=== PATIENT | female | born 1970 | race Caucasian/White ===

== ENCOUNTER 2016-08-21 18:42 | Emergency (ER) | payer MEDICAID ==
[~2016-08-21 18:42] MED LIST: ANT12.5 PO; COL100 PO; FER300 PO; HUMULIN R100 U/1 M1 SC; LEVEMIR100 U/M1 SQ; LIPI10 PO; METFORMIN HCL1000 MG PO; METOPROLOL TART25 M1 PO; NORCO1 TA2 PO; PRI20 PO; ZES20 PO
[2016-08-21 21:03] VITALS: BP 147/74
== END 2016-08-21 21:17 | disposition home or self-care (01) ==
LOC: ED 18:42
DX: S16.1XXA Strain of muscle, fascia and tendon at neck level, initial encounter (principal); R51 Headache; I10 Essential (primary) hypertension; E11.9 Type 2 diabetes mellitus without complications; V49.9XXA Car occupant (driver) (passenger) injured in unspecified traffic accident, initial encounter; Y93.89 Activity, other specified; Y99.8 Other external cause status; Y92.89 Other specified places as the place of occurrence of the external cause

== ENCOUNTER 2017-05-10 20:47 | Inpatient (IN) | payer MEDICAID ==
[~2017-05-10] VITALS: Ht 167.6 cm; Wt 83.0 kg
[2017-05-10 21:34] LABS: BASOPHIL % 0.5 % (0-2); PLATELET COUNT 276 x10^3mcL (130-400)
[2017-05-10 21:35] LABS: RED CELL DISTRIBUTION WIDTH 15.7 % (11.5-14.5)
[2017-05-10 21:39] LABS: CALCIUM 8.3 mg/dL (8.5-10.1); CARBON DIOXIDE 27.5 mmol/L (21-32); CHLORIDE SERUM 102 mmol/L (98-107); GFR1 > 60 mL/min; GLUCOSE SERUM 139 mg/dL (74-106); POTASSIUM SERUM 3.8 mmol/L (3.5-5.1); SODIUM SERUM 139 mmol/L (136-145)
[2017-05-10 21:43] LABS: ALBUMIN 3.7 g/dL (3.4-5.0); ALKALINE PHOSPHATASE 69 U/L (46-116); ALT/SGPT 28 U/L (14-59); AST/SGOT 14 U/L (15-37); BILIRUBIN TOTAL 0.18 mg/dL (0.20-1.00); TOTAL PROTEIN, SERUM 7.1 g/dL (6.4-8.2)
[2017-05-10 22:06] LABS: T4(THYROXINE) 4.8 ug/dL (4.7-13.3)
[2017-05-10 23:05] LABS: CHOLESTEROL 200 mg/dL (<200); CHOLESTEROL/HDL RATIO 5.1; HDL CHOLESTEROL 39 mg/dL (40-60); MAGNESIUM 1.9 mg/dL (1.8-2.4); PHOSPHOROUS 3.5 mg/dL (2.5-4.9)
[2017-05-10 23:06] LABS: TRIGLYCERIDES 457 mg/dL (<150)
[2017-05-10 23:38] VITALS: BP 147/71
[2017-05-11 05:44] VITALS: BP 111/54
[2017-05-11 06:25] LABS: BASOPHIL % 0.5 % (0-2); PLATELET COUNT 248 x10^3mcL (130-400)
[2017-05-11 06:42] LABS: RED CELL DISTRIBUTION WIDTH 15.9 % (11.5-14.5)
[2017-05-11 06:43] LABS: CALCIUM 7.6 mg/dL (8.5-10.1); CARBON DIOXIDE 29.3 mmol/L (21-32); CHLORIDE SERUM 105 mmol/L (98-107); CREATININE SERUM 0.8 mg/dL (0.6-1.0); GFR1 > 60 mL/min; GLUCOSE SERUM 136 mg/dL (74-106); SODIUM SERUM 140 mmol/L (136-145); rbc morphology (normal/abnorm) ABNORMAL (NORMAL)
[2017-05-11 08:32] VITALS: BP 112/53
[2017-05-11 10:01] LABS: UA SPECIFIC GRAVITY 1.015 (1.005-1.035); microscopic required? YES; urine erythrocyte 2+ (NEGATIVE)
[2017-05-11 10:12] LABS: AMPHETAMINE QUAL UR NONE DETECTED (NEG <=1000)
[2017-05-11 13:04] VITALS: BP 110/51
[2017-05-11 18:01] VITALS: BP 104/40
[2017-05-11 21:24] VITALS: BP 112/53
[2017-05-12 06:30] VITALS: BP 108/50
[2017-05-12 07:35] LABS: BASOPHIL % 0.7 % (0-2); PLATELET COUNT 258 x10^3mcL (130-400)
[2017-05-12 07:46] LABS: RED CELL DISTRIBUTION WIDTH 16.1 % (11.5-14.5)
[2017-05-12 07:47] LABS: CALCIUM 8.3 mg/dL (8.5-10.1); CARBON DIOXIDE 31.2 mmol/L (21-32); CHLORIDE SERUM 103 mmol/L (98-107); CREATININE SERUM 0.8 mg/dL (0.6-1.0); GFR1 > 60 mL/min; GLUCOSE SERUM 140 mg/dL (74-106); POTASSIUM SERUM 4.2 mmol/L (3.5-5.1); SODIUM SERUM 139 mmol/L (136-145)
[2017-05-12 08:33] VITALS: BP 110/47
[2017-05-12 12:40] VITALS: BP 124/52
[2017-05-12 16:55] VITALS: BP 121/45
[2017-05-12 21:09] VITALS: BP 114/44
[2017-05-13 05:09] VITALS: BP 108/48
[2017-05-13 06:16] LABS: BASOPHIL % 0.6 % (0-2); PLATELET COUNT 274 x10^3mcL (130-400)
[2017-05-13 06:29] LABS: CALCIUM 8.6 mg/dL (8.5-10.1); CARBON DIOXIDE 32.2 mmol/L (21-32); CHLORIDE SERUM 101 mmol/L (98-107); CREATININE SERUM 0.8 mg/dL (0.6-1.0); GFR1 > 60 mL/min; GLUCOSE SERUM 121 mg/dL (74-106); POTASSIUM SERUM 4.2 mmol/L (3.5-5.1); SODIUM SERUM 140 mmol/L (136-145)
[2017-05-13 06:38] LABS: RED CELL DISTRIBUTION WIDTH 16.4 % (11.5-14.5)
[2017-05-13 10:57] VITALS: BP 108/48
[2017-05-13] MEDS ORDERED: ZES20 PO (13:22)
[2017-05-13 13:31] VITALS: BP 129/51
[2017-05-13] MEDS ORDERED: LEVOTHYROXIN0.075 M2 PO (13:59)
[2017-05-13] MEDS ORDERED: VITC PO (14:01)
[2017-05-13] MEDS ORDERED: FER300 PO (14:01)
== END 2017-05-13 15:22 | disposition home or self-care (01) | DRG 48 ==
LOC: ED 20:47 → DU 22:20
PROVIDERS: Emergency Medicine; Family Medicine
DX: G90.8 Other disorders of autonomic nervous system (principal); E11.65 Type 2 diabetes mellitus with hyperglycemia; I10 Essential (primary) hypertension; E03.9 Hypothyroidism, unspecified; R00.1 Bradycardia, unspecified; H81.10 Benign paroxysmal vertigo, unspecified ear; E83.51 Hypocalcemia; K21.9 Gastro-esophageal reflux disease without esophagitis; D64.9 Anemia, unspecified; E78.1 Pure hyperglyceridemia; Z85.850 Personal history of malignant neoplasm of thyroid; Z90.89 Acquired absence of other organs; Z83.3 Family history of diabetes mellitus; Z82.62 Family history of osteoporosis; Z90.49 Acquired absence of other specified parts of digestive tract; Z98.42 Cataract extraction status, left eye; Z98.41 Cataract extraction status, right eye; Z98.51 Tubal ligation status
CPT/HCPCS: 82962; 83880; J1815; J1885; J2405; J2765; J7030; J8597; Q0092

== ENCOUNTER 2017-09-28 19:49 | Emergency (ER) | payer MEDICAID ==
[~2017-09-28] VITALS: Ht 167.6 cm; Wt 82.6 kg
[~2017-09-28 19:49] MED LIST changes: +LEVOTHYROXIN0.075 M2 PO; +VITC PO
[2017-09-28 20:07] VITALS: Ht 167.6 cm; Wt 82.6 kg
[2017-09-28 20:53] LABS: UA SPECIFIC GRAVITY >=1.030 (1.005-1.035); microscopic required? YES; urine erythrocyte NEGATIVE (NEGATIVE)
[2017-09-28 21:02] LABS: AMPHETAMINE QUAL UR NONE DETECTED (See below)
[2017-09-28 21:15] LABS: CALCIUM 8.4 mg/dL (8.5-10.1); CHLORIDE SERUM 102 mmol/L (98-107); CREATININE SERUM 0.7 mg/dL (0.6-1.0); GFR1 > 60 mL/min; GLUCOSE SERUM 178 mg/dL (74-106); SODIUM SERUM 139 mmol/L (136-145)
[2017-09-28 21:26] LABS: BASOPHIL % 0.5 % (0-2); PLATELET COUNT 258 x10^3mcL (130-400)
[2017-09-28 21:27] LABS: ALBUMIN 3.4 g/dL (3.4-5.0); ALKALINE PHOSPHATASE 84 U/L (46-116); ALT/SGPT 38 U/L (14-59); AST/SGOT 25 U/L (15-37); BILIRUBIN TOTAL 0.2 mg/dL (0.20-1.00); FREE T4 0.68 ng/dL (0.76-1.46); LIPASE 321 IU/L (73-393)
[2017-09-28 21:36] LABS: RED CELL DISTRIBUTION WIDTH 17.8 % (11.5-14.5)
[2017-09-28 23:57] VITALS: BP 145/75
== END 2017-09-28 23:57 | disposition home or self-care (01) ==
LOC: ED 19:49
PROVIDERS: Emergency Medicine
DX: E03.9 Hypothyroidism, unspecified (principal); E11.9 Type 2 diabetes mellitus without complications; I10 Essential (primary) hypertension; Z91.14 Patient's other noncompliance with medication regimen; Z86.73 Personal history of transient ischemic attack (TIA), and cerebral infarction without residual deficits; Z90.09 Acquired absence of other part of head and neck
CPT/HCPCS: 83880; 84439; J7030

== ENCOUNTER 2017-10-08 20:21 | Emergency (ER) | payer MEDICAID ==
[~2017-10-08] VITALS: Ht 167.6 cm; Wt 79.8 kg
[2017-10-08 21:28] VITALS: BP 132/63; Ht 167.6 cm; Wt 79.8 kg
== END 2017-10-09 00:42 | disposition left against medical advice (07) ==
LOC: ED 20:21
DX: Z53.21 Procedure and treatment not carried out due to patient leaving prior to being seen by health care provider (principal)

== ENCOUNTER 2017-10-12 18:52 | Inpatient (IN) | payer MEDICAID ==
[~2017-10-12] VITALS: Ht 172.7 cm; Wt 79.4 kg
[2017-10-12 19:12] VITALS: Ht 172.7 cm; Wt 79.4 kg
[2017-10-12 20:09] LABS: BASOPHIL % 0.4 % (0-2); PLATELET COUNT 335 x10^3mcL (130-400)
[2017-10-12 20:19] LABS: CALCIUM 8.8 mg/dL (8.5-10.1); CARBON DIOXIDE 31.9 mmol/L (21-32); CHLORIDE SERUM 97 mmol/L (98-107); GFR1 > 60 mL/min; GLUCOSE SERUM 128 mg/dL (74-106); POTASSIUM SERUM 3.9 mmol/L (3.5-5.1); SODIUM SERUM 135 mmol/L (136-145)
[2017-10-12 20:31] LABS: ALKALINE PHOSPHATASE 119 U/L (46-116); ALT/SGPT 32 U/L (14-59); AST/SGOT 20 U/L (15-37); BILIRUBIN TOTAL 0.36 mg/dL (0.20-1.00); FREE T4 1.42 ng/dL (0.76-1.46); LIPASE 303 IU/L (73-393)
[2017-10-12 20:33] LABS: ALBUMIN 3.3 g/dL (3.4-5.0); TOTAL PROTEIN, SERUM 8.3 g/dL (6.4-8.2)
[2017-10-12 20:58] LABS: UA SPECIFIC GRAVITY 1.015 (1.005-1.035); microscopic required? YES; urine erythrocyte NEGATIVE (NEGATIVE)
[2017-10-12] MEDS ORDERED: CALCIUM/VITAMIN1 TA2 PO (21:54)
[2017-10-12] MEDS ORDERED: ZOCOR10 MG PO (21:54)
[2017-10-12] MEDS ORDERED: PRINIVIL10 MG PO (21:55)
[2017-10-12] MEDS ORDERED: GLUCOPHAGE1000 MG PO (21:56)
[2017-10-12] MEDS ORDERED: SYNTHROID0.175 MG PO (21:57)
[2017-10-12] MEDS ORDERED: LANTUS100 U/ML SC (21:58)
[2017-10-12 23:12] VITALS: BP 99/38
[2017-10-13 02:51] LABS: MAGNESIUM 1.9 mg/dL (1.8-2.4); PHOSPHOROUS 3.6 mg/dL (2.5-4.9)
[2017-10-13 05:10] VITALS: BP 125/41
[2017-10-13 07:33] LABS: BASOPHIL % 0.2 % (0-2); PLATELET COUNT 275 x10^3mcL (130-400)
[2017-10-13 07:50] LABS: CALCIUM 7.9 mg/dL (8.5-10.1); CARBON DIOXIDE 28.4 mmol/L (21-32); CHLORIDE SERUM 102 mmol/L (98-107); CREATININE SERUM 0.7 mg/dL (0.6-1.0); GFR1 > 60 mL/min; GLUCOSE SERUM 106 mg/dL (74-106); PHOSPHOROUS 3.2 mg/dL (2.5-4.9); POTASSIUM SERUM 3.5 mmol/L (3.5-5.1); SODIUM SERUM 138 mmol/L (136-145)
[2017-10-13 09:03] LABS: rbc morphology (normal/abnorm) ABNORMAL (NORMAL)
[2017-10-13 09:24] VITALS: BP 129/55
[2017-10-13 12:44] VITALS: BP 151/59
[2017-10-13 16:20] VITALS: BP 112/43
[2017-10-13 22:33] VITALS: BP 121/35
[2017-10-14] VITALS (8 sets, daily range): BP systolic 103–158; BP diastolic 32–76
[2017-10-14 06:30] LABS: BASOPHIL % 0.4 % (0-2); PLATELET COUNT 300 x10^3mcL (130-400)
[2017-10-14 06:50] LABS: CALCIUM 8.2 mg/dL (8.5-10.1); CARBON DIOXIDE 31.3 mmol/L (21-32); CHLORIDE SERUM 103 mmol/L (98-107); CREATININE SERUM 0.7 mg/dL (0.6-1.0); GFR1 > 60 mL/min; GLUCOSE SERUM 116 mg/dL (74-106); MAGNESIUM 2.1 mg/dL (1.8-2.4); PHOSPHOROUS 3.6 mg/dL (2.5-4.9); POTASSIUM SERUM 4.1 mmol/L (3.5-5.1); SODIUM SERUM 139 mmol/L (136-145)
[2017-10-14 09:13] LABS: HELICOBACTER PYLORI IGG QNT 0.53 (0.00-0.79)
[2017-10-14 09:20] LABS: ovalocyte/elliptocyte 1+; rbc morphology (normal/abnorm) ABNORMAL (NORMAL); tear drop cell (dacryocyte) 1+
[2017-10-15 05:36] VITALS: BP 138/46
[2017-10-15 09:24] LABS: CALCIUM 8.6 mg/dL (8.5-10.1); CARBON DIOXIDE 28.6 mmol/L (21-32); CHLORIDE SERUM 98 mmol/L (98-107); CREATININE SERUM 0.7 mg/dL (0.6-1.0); GFR1 > 60 mL/min; GLUCOSE SERUM 214 mg/dL (74-106); MAGNESIUM 1.9 mg/dL (1.8-2.4); PHOSPHOROUS 3.4 mg/dL (2.5-4.9); POTASSIUM SERUM 3.9 mmol/L (3.5-5.1); SODIUM SERUM 130 mmol/L (136-145)
[2017-10-15 09:30] LABS: BASOPHIL % 0.2 % (0-2); PLATELET COUNT 316 x10^3mcL (130-400)
[2017-10-15 09:33] LABS: RED CELL DISTRIBUTION WIDTH 19.6 % (11.5-14.5)
[2017-10-15 09:34] LABS: rbc morphology (normal/abnorm) ABNORMAL (NORMAL)
[2017-10-15 09:53] VITALS: BP 110/45
[2017-10-15 13:57] VITALS: BP 118/50
[2017-10-15 17:15] VITALS: BP 103/50
[2017-10-15 21:06] VITALS: BP 125/42
[2017-10-16] VITALS (8 sets, daily range): BP systolic 114–143; BP diastolic 47–76
[2017-10-16 07:20] LABS: BASOPHIL % 0.5 % (0-2); PLATELET COUNT 331 x10^3mcL (130-400)
[2017-10-16 07:24] LABS: RED CELL DISTRIBUTION WIDTH 20.1 % (11.5-14.5)
[2017-10-16 07:54] LABS: CALCIUM 8.4 mg/dL (8.5-10.1); CHLORIDE SERUM 102 mmol/L (98-107); CREATININE SERUM 0.6 mg/dL (0.6-1.0); GFR1 > 60 mL/min; GLUCOSE SERUM 117 mg/dL (74-106); PHOSPHOROUS 4.1 mg/dL (2.5-4.9); POTASSIUM SERUM 3.9 mmol/L (3.5-5.1); SODIUM SERUM 137 mmol/L (136-145)
[2017-10-16 09:15] LABS: ovalocyte/elliptocyte 1+; rbc morphology (normal/abnorm) ABNORMAL (NORMAL); target cell (codocyte) 1+
[2017-10-17 05:17] VITALS: BP 118/67
[2017-10-17 06:18] LABS: BASOPHIL % 0.2 % (0-2); PLATELET COUNT 345 x10^3mcL (130-400)
[2017-10-17 06:36] LABS: CALCIUM 8.3 mg/dL (8.5-10.1); CARBON DIOXIDE 27.7 mmol/L (21-32); CHLORIDE SERUM 101 mmol/L (98-107); CREATININE SERUM 0.6 mg/dL (0.6-1.0); GFR1 > 60 mL/min; GLUCOSE SERUM 120 mg/dL (74-106); MAGNESIUM 2.1 mg/dL (1.8-2.4); PHOSPHOROUS 4.1 mg/dL (2.5-4.9); POTASSIUM SERUM 4.2 mmol/L (3.5-5.1); SODIUM SERUM 133 mmol/L (136-145)
[2017-10-17 06:41] LABS: RED CELL DISTRIBUTION WIDTH 19.7 % (11.5-14.5); rbc morphology (normal/abnorm) ABNORMAL (NORMAL)
[2017-10-17 09:01] VITALS: BP 136/61
[2017-10-17 12:15] VITALS: BP 136/61
[2017-10-17 12:23] VITALS: BP 120/50
[2017-10-17 16:45] VITALS: BP 134/60
[2017-10-17 20:19] VITALS: BP 116/48
[2017-10-18 05:45] VITALS: BP 127/53
[2017-10-18 06:07] LABS: BASOPHIL % 0.5 % (0-2); PLATELET COUNT 399 x10^3mcL (130-400)
[2017-10-18 06:33] LABS: CALCIUM 8.6 mg/dL (8.5-10.1); CARBON DIOXIDE 30.8 mmol/L (21-32); CHLORIDE SERUM 99 mmol/L (98-107); CREATININE SERUM 0.6 mg/dL (0.6-1.0); GFR1 > 60 mL/min; GLUCOSE SERUM 123 mg/dL (74-106); MAGNESIUM 2.2 mg/dL (1.8-2.4); PHOSPHOROUS 4.1 mg/dL (2.5-4.9); POTASSIUM SERUM 3.9 mmol/L (3.5-5.1); SODIUM SERUM 137 mmol/L (136-145)
[2017-10-18 06:43] LABS: RED CELL DISTRIBUTION WIDTH 19.5 % (11.5-14.5)
[2017-10-18 08:36] VITALS: BP 131/45
[2017-10-18 12:41] VITALS: BP 133/60
[2017-10-18 18:10] VITALS: BP 118/50
[2017-10-18 21:01] VITALS: BP 135/56
[2017-10-19 05:41] LABS: BASOPHIL % 0.4 % (0-2)
[2017-10-19 05:52] LABS: CALCIUM 8.4 mg/dL (8.5-10.1); CARBON DIOXIDE 27.6 mmol/L (21-32); CHLORIDE SERUM 105 mmol/L (98-107); CREATININE SERUM 0.5 mg/dL (0.6-1.0); GFR1 > 60 mL/min; GLUCOSE SERUM 104 mg/dL (74-106); POTASSIUM SERUM 4.6 mmol/L (3.5-5.1); SODIUM SERUM 140 mmol/L (136-145)
[2017-10-19 05:59] LABS: PLATELET COUNT 410 x10^3mcL (130-400); RED CELL DISTRIBUTION WIDTH 19.7 % (11.5-14.5)
[2017-10-19 08:35] VITALS: BP 113/46
[2017-10-19 13:30] VITALS: BP 121/55
[2017-10-19 18:21] VITALS: BP 121/50
[2017-10-19 18:25] VITALS: BP 157/91
[2017-10-19 20:39] VITALS: BP 127/47
[2017-10-20 05:10] VITALS: BP 140/44
[2017-10-20 09:24] VITALS: BP 121/53
[2017-10-20 13:37] VITALS: BP 116/46
[2017-10-20 15:56] VITALS: BP 116/46
[2017-10-20 17:51] VITALS: BP 117/45
[2017-10-20 20:30] VITALS: BP 125/42
[2017-10-21 04:55] VITALS: BP 118/48
[2017-10-21 07:03] LABS: BASOPHIL % 0.4 % (0-2)
[2017-10-21 07:05] LABS: PLATELET COUNT 484 x10^3mcL (130-400); RED CELL DISTRIBUTION WIDTH 20.2 % (11.5-14.5)
[2017-10-21 07:13] LABS: CALCIUM 8.8 mg/dL (8.5-10.1); CARBON DIOXIDE 30.2 mmol/L (21-32); CHLORIDE SERUM 101 mmol/L (98-107); CREATININE SERUM 0.6 mg/dL (0.6-1.0); GFR1 > 60 mL/min; GLUCOSE SERUM 108 mg/dL (74-106); MAGNESIUM 2.1 mg/dL (1.8-2.4); PHOSPHOROUS 4.6 mg/dL (2.5-4.9); POTASSIUM SERUM 4.3 mmol/L (3.5-5.1); SODIUM SERUM 138 mmol/L (136-145)
[2017-10-21 09:23] VITALS: BP 122/53
[2017-10-21 12:54] VITALS: BP 112/46
[2017-10-21 13:24] VITALS: BP 122/53
== END 2017-10-21 15:31 | disposition home or self-care (01) | DRG 139 ==
LOC: ED 18:52 → DU 21:17
PROVIDERS: Emergency Medicine; Family Medicine
DX: J18.9 Pneumonia, unspecified organism (principal); N17.0 Acute kidney failure with tubular necrosis; E11.65 Type 2 diabetes mellitus with hyperglycemia; E87.1 Hypo-osmolality and hyponatremia; E44.1 Mild protein-calorie malnutrition; R80.9 Proteinuria, unspecified; R91.8 Other nonspecific abnormal finding of lung field; K21.9 Gastro-esophageal reflux disease without esophagitis; R19.7 Diarrhea, unspecified; D50.9 Iron deficiency anemia, unspecified; I10 Essential (primary) hypertension; E78.00 Pure hypercholesterolemia, unspecified; Z68.34 Body mass index [BMI] 34.0-34.9, adult; Z79.4 Long term (current) use of insulin; Z79.84 Long term (current) use of oral hypoglycemic drugs; Z85.850 Personal history of malignant neoplasm of thyroid
CPT/HCPCS: 82962; 83880; 84439; 90715; 94150; J0696; J1670; J2270; J2543; J3010; J3370; J7030; J7620; Q0092; Q9967

== ENCOUNTER 2017-11-08 09:14 | Emergency (ER) | payer MEDICAID ==
[~2017-11-08] VITALS: Ht 167.6 cm; Wt 80.3 kg
[~2017-11-08 09:14] MED LIST changes: +CALCIUM/VITAMIN1 TA2 PO; +GLUCOPHAGE1000 MG PO; +LANTUS100 U/ML SC; +PRINIVIL10 MG PO; +SYNTHROID0.175 MG PO; +ZOCOR10 MG PO
[2017-11-08 09:24] VITALS: BP 131/43; Ht 167.6 cm; Wt 80.3 kg
== END 2017-11-08 11:22 | disposition home or self-care (01) ==
LOC: ED 09:14
DX: H10.213 Acute toxic conjunctivitis, bilateral (principal); Z86.73 Personal history of transient ischemic attack (TIA), and cerebral infarction without residual deficits; I10 Essential (primary) hypertension; E11.9 Type 2 diabetes mellitus without complications; E78.00 Pure hypercholesterolemia, unspecified
CPT/HCPCS: V2632

== ENCOUNTER 2018-09-01 19:22 | Inpatient (IN) | payer MEDICAID ==
[~2018-09-01] VITALS: Ht 172.7 cm; Wt 90.7 kg
[2018-09-01 19:34] VITALS: Ht 172.7 cm; Wt 90.7 kg
[2018-09-01 20:59] LABS: BASOPHIL % 0.4 % (0-2); PLATELET COUNT 222 x10^3mcL (130-400)
[2018-09-01 21:00] LABS: RED CELL DISTRIBUTION WIDTH 16.2 % (11.5-14.5)
[2018-09-01 21:02] LABS: CALCIUM 9.2 mg/dL (8.5-10.1); CARBON DIOXIDE 30.6 mmol/L (21-32); CHLORIDE SERUM 101 mmol/L (98-107); CREATININE SERUM 0.8 mg/dL (0.6-1.0); GFR1 > 60 mL/min; GLUCOSE SERUM 346 mg/dL (74-106); SODIUM SERUM 138 mmol/L (136-145)
[2018-09-01 21:13] LABS: ALBUMIN 3.9 g/dL (3.4-5.0); ALKALINE PHOSPHATASE 105 U/L (46-116); ALT/SGPT 55 U/L (14-59); AST/SGOT 25 U/L (15-37); BILIRUBIN TOTAL 0.2 mg/dL (0.20-1.00); TOTAL PROTEIN, SERUM 7.5 g/dL (6.4-8.2)
[2018-09-01] MEDS ORDERED: FERROUS SULFAT325 M2 PO (23:42)
[2018-09-01] MEDS ORDERED: GOOD SENSE OMEP20 MG PO (23:42)
[2018-09-01] MEDS ORDERED: HYDROCHLOROTH12.5 M2 PO (23:42)
[2018-09-02] VITALS (7 sets, daily range): BP systolic 101–140; BP diastolic 48–71
[2018-09-02 00:04] LABS: CHOLESTEROL/HDL RATIO 4.3; MAGNESIUM 2.2 mg/dL (1.8-2.4); PHOSPHOROUS 3.7 mg/dL (2.5-4.9)
[2018-09-02 00:11] LABS: T3 TOTAL 1.23 ng/mL
[2018-09-02 00:12] LABS: FREE T4 1.15 ng/dL (0.76-1.46); FREE THYROXINE INDEX 3.3 ug/dL (1.4-4.5)
[2018-09-02 06:30] LABS: BASOPHIL % 0.5 % (0-2); PLATELET COUNT 214 x10^3mcL (130-400)
[2018-09-02 06:56] LABS: microscopic required? NO
[2018-09-02 07:02] LABS: CALCIUM 8.5 mg/dL (8.5-10.1); CARBON DIOXIDE 31.7 mmol/L (21-32); CHLORIDE SERUM 104 mmol/L (98-107); CREATININE SERUM 0.6 mg/dL (0.6-1.0); GFR1 > 60 mL/min; GLUCOSE SERUM 167 mg/dL (74-106); MAGNESIUM 1.9 mg/dL (1.8-2.4); PHOSPHOROUS 4.1 mg/dL (2.5-4.9); POTASSIUM SERUM 3.9 mmol/L (3.5-5.1); SODIUM SERUM 142 mmol/L (136-145)
[2018-09-02 07:10] LABS: RED CELL DISTRIBUTION WIDTH 16.6 % (11.5-14.5)
[2018-09-02 07:45] LABS: AMPHETAMINE QUAL UR NONE DETECTED (See below)
[2018-09-02 08:57] LABS: urine erythrocyte NEGATIVE (NEGATIVE)
[2018-09-03 05:35] VITALS: BP 103/61
[2018-09-03 06:06] LABS: BASOPHIL % 0.5 % (0-2); PLATELET COUNT 200 x10^3mcL (130-400)
[2018-09-03 06:22] LABS: CALCIUM 8.8 mg/dL (8.5-10.1); CARBON DIOXIDE 28.4 mmol/L (21-32); CHLORIDE SERUM 104 mmol/L (98-107); CREATININE SERUM 0.6 mg/dL (0.6-1.0); GFR1 > 60 mL/min; GLUCOSE SERUM 147 mg/dL (74-106); MAGNESIUM 1.8 mg/dL (1.8-2.4); PHOSPHOROUS 4.9 mg/dL (2.5-4.9); SODIUM SERUM 141 mmol/L (136-145)
[2018-09-03 07:05] LABS: RED CELL DISTRIBUTION WIDTH 14.9 % (11.5-14.5)
[2018-09-03 07:57] VITALS: BP 143/41
[2018-09-03 12:45] VITALS: BP 123/44
[2018-09-03 14:37] VITALS: BP 123/44
== END 2018-09-03 15:19 | disposition home or self-care (01) | DRG 347 ==
LOC: ED 19:22 → DU 23:30
PROVIDERS: Emergency Medicine; ADMIT Internal Medicine
DX: M54.6 Pain in thoracic spine (principal); E11.65 Type 2 diabetes mellitus with hyperglycemia; I10 Essential (primary) hypertension; K21.9 Gastro-esophageal reflux disease without esophagitis; E78.5 Hyperlipidemia, unspecified; D50.9 Iron deficiency anemia, unspecified; Z68.32 Body mass index [BMI] 32.0-32.9, adult; Z85.850 Personal history of malignant neoplasm of thyroid; Z79.84 Long term (current) use of oral hypoglycemic drugs; Z86.73 Personal history of transient ischemic attack (TIA), and cerebral infarction without residual deficits
CPT/HCPCS: 82962; 83880; 84439; 85378; G0378; J1815; J2270; J3490; J7030; Q9967

== ENCOUNTER 2018-11-05 08:13 | Inpatient (IN) | payer MEDICAID ==
[~2018-11-05] VITALS: Ht 167.6 cm; Wt 80.9 kg
[~2018-11-05 08:13] MED LIST changes: +FERROUS SULFAT325 M2 PO; +GOOD SENSE OMEP20 MG PO; +HYDROCHLOROTH12.5 M2 PO
[2018-11-05 08:18] VITALS: Ht 167.6 cm; Wt 80.9 kg
[2018-11-05 09:12] LABS: BASOPHIL % 0.6 % (0-2); PLATELET COUNT 311 x10^3mcL (130-400); RED CELL DISTRIBUTION WIDTH 13.6 % (11.5-14.5)
[2018-11-05 09:34] LABS: CALCIUM 8.8 mg/dL (8.5-10.1); CARBON DIOXIDE 27.8 mmol/L (21-32); CHLORIDE SERUM 104 mmol/L (98-107); CREATININE SERUM 0.6 mg/dL (0.6-1.0); GFR1 > 60 mL/min; GLUCOSE SERUM 164 mg/dL (74-106); POTASSIUM SERUM 4.3 mmol/L (3.5-5.1); SODIUM SERUM 143 mmol/L (136-145)
[2018-11-05 09:39] LABS: ALBUMIN 3.8 g/dL (3.4-5.0); ALKALINE PHOSPHATASE 111 U/L (46-116); ALT/SGPT 33 U/L (14-59); AST/SGOT 34 U/L (15-37); BILIRUBIN TOTAL 0.4 mg/dL (0.20-1.00)
[2018-11-05] MEDS ORDERED: LEVOTHYROXINE0.2 M2 PO (10:26)
[2018-11-05] MEDS ORDERED: GABAPENTIN300 M4 PO (10:27)
[2018-11-05] MEDS ORDERED: COLACE100 MG PO ×2 (10:28→10:29)
[2018-11-05] MEDS ORDERED: DIFLUCAN200 MG PO (10:31)
[2018-11-05] MEDS ORDERED: LEVEMIR100 U/M1 (10:31)
[2018-11-05 14:37] VITALS: BP 110/45
[2018-11-05 16:39] LABS: microscopic required? YES; urine erythrocyte 3+ (NEGATIVE)
[2018-11-05 16:52] LABS: AMPHETAMINE QUAL UR POSITIVE (See below)
[2018-11-05 18:56] LABS: CHOLESTEROL/HDL RATIO 3.6
[2018-11-05 19:06] LABS: FREE T4 1.47 ng/dL (0.76-1.46)
[2018-11-05 19:08] LABS: T3 TOTAL 1.21 ng/mL
[2018-11-05 20:20] VITALS: BP 119/64; BP 122/72
[2018-11-06] VITALS (11 sets, daily range): BP systolic 102–117; BP diastolic 30–70
[2018-11-06 07:20] LABS: CALCIUM 7.8 mg/dL (8.5-10.1); CHLORIDE SERUM 107 mmol/L (98-107); CREATININE SERUM 0.7 mg/dL (0.6-1.0); GFR1 > 60 mL/min; GLUCOSE SERUM 146 mg/dL (74-106); SODIUM SERUM 144 mmol/L (136-145)
[2018-11-06 07:39] LABS: BASOPHIL % 0.7 % (0-2); PLATELET COUNT 238 x10^3mcL (130-400); RED CELL DISTRIBUTION WIDTH 13.7 % (11.5-14.5)
[2018-11-07 06:00] VITALS: BP 118/55
[2018-11-07 06:53] LABS: BASOPHIL % 0.6 % (0-2); PLATELET COUNT 221 x10^3mcL (130-400); RED CELL DISTRIBUTION WIDTH 13.5 % (11.5-14.5)
[2018-11-07 07:12] LABS: CALCIUM 7.6 mg/dL (8.5-10.1); CARBON DIOXIDE 25.7 mmol/L (21-32); CHLORIDE SERUM 108 mmol/L (98-107); CREATININE SERUM 0.6 mg/dL (0.6-1.0); GFR1 > 60 mL/min; GLUCOSE SERUM 144 mg/dL (74-106); POTASSIUM SERUM 3.7 mmol/L (3.5-5.1); SODIUM SERUM 144 mmol/L (136-145)
[2018-11-07 08:11] VITALS: BP 131/51
[2018-11-07 12:09] VITALS: BP 125/49
[2018-11-07 16:45] VITALS: BP 118/42
[2018-11-07 20:29] VITALS: BP 114/47
[2018-11-08 05:29] VITALS: BP 123/42
[2018-11-08 07:01] LABS: CARBON DIOXIDE 29.4 mmol/L (21-32); CHLORIDE SERUM 107 mmol/L (98-107); CREATININE SERUM 0.7 mg/dL (0.6-1.0); GFR1 > 60 mL/min; GLUCOSE SERUM 150 mg/dL (74-106); MAGNESIUM 1.9 mg/dL (1.8-2.4); POTASSIUM SERUM 4.3 mmol/L (3.5-5.1); SODIUM SERUM 142 mmol/L (136-145)
[2018-11-08 07:52] LABS: BASOPHIL % 0.3 % (0-2); PLATELET COUNT 218 x10^3mcL (130-400); RED CELL DISTRIBUTION WIDTH 13.7 % (11.5-14.5)
[2018-11-08 07:58] VITALS: BP 106/43
[2018-11-08] MEDS ORDERED: CARCD120 PO (10:42)
[2018-11-08] MEDS ORDERED: ECO81 PO (10:43)
[2018-11-08] MEDS ORDERED: LIPITOR40 MG PO (10:46)
[2018-11-08 11:54] VITALS: BP 147/54
[2018-11-08 11:56] VITALS: BP 147/54
== END 2018-11-08 14:09 | disposition home or self-care (01) | DRG 190 ==
LOC: ED 08:13 → DU 13:08
PROVIDERS: Emergency Medicine; Internal Medicine Geriatric Medicine; ADMIT Internal Medicine
PROC: B215YZZ Fluoroscopy of Left Heart using Other Contrast (ICD-10-PCS; 2018-11-06)
PROC: B211YZZ Fluoroscopy of Multiple Coronary Arteries using Other Contrast (ICD-10-PCS; 2018-11-06)
PROC: 4A023N7 Measurement of Cardiac Sampling and Pressure, Left Heart, Percutaneous Approach (ICD-10-PCS; principal; 2018-11-06 14:00)
DX: I21.4 Non-ST elevation (NSTEMI) myocardial infarction (principal); E11.65 Type 2 diabetes mellitus with hyperglycemia; I11.9 Hypertensive heart disease without heart failure; I25.111 Atherosclerotic heart disease of native coronary artery with angina pectoris with documented spasm; E89.0 Postprocedural hypothyroidism; Z68.28 Body mass index [BMI] 28.0-28.9, adult; Z85.850 Personal history of malignant neoplasm of thyroid; Z86.73 Personal history of transient ischemic attack (TIA), and cerebral infarction without residual deficits; Z79.84 Long term (current) use of oral hypoglycemic drugs
CPT/HCPCS: CLHCL; 82962; 83880; 84439; C1725; C1760; C1876; C1887; C1894; G0378; J1644; J1650; J1815; J1885; J2001; J2250; J2270; J3010; J7042; Q0092; Q9967

== ENCOUNTER 2018-11-11 19:54 | Inpatient (IN) | payer MEDICAID ==
[~2018-11-11] VITALS: Ht 167.6 cm; Wt 81.2 kg
[~2018-11-11 19:54] MED LIST changes: +CARCD120 PO; +COLACE100 MG PO; +DIFLUCAN200 MG PO; +ECO81 PO; +GABAPENTIN300 M4 PO; +LEVEMIR100 U/M1; +LEVOTHYROXINE0.2 M2 PO; +LIPITOR40 MG PO
--- NOTE | 2018-11-11 20:07 | NUR ---
PT C/O EPIGASTRIC PAIN, CHEST PAIN, R FLANK PAIN, AND DIZZINES X8 DAYS. PT DESCRIBES PAIN 10/10 SHARP PAIN. PER , PT WAS LAYING IN BED TODAY, AND STARTED TO FEEL WEAK AND PASS OUT, WAKING UP RIGHT AWAY. PT REPORTS NO OTHER COMPLAINTS. PT DENIES SOB, FEVER/CHILLS, N/V/D. REPORTS LUMP REMOVAL PROCEDURE 1 MONTH AGO, AND REPORTS "PROBLEMS" SINCE THEN. PT PLACED ON CREDIT UNION EXAMINER AND PULSE OX. VSS, RESPS E/U, NAD NOTED AT THIS TIME. EMT AT BEDSIDE FOR EKG. AWAITING MSE.
--- NOTE | 2018-11-11 20:54 | NUR ---
MEDICATION ADMINISTERED PER MD ORDER FOR NAUSEA AND PAIN. WILL REASSESS.
[2018-11-11 21:00] LABS: BASOPHIL % 0.4 % (0-2); PLATELET COUNT 243 x10^3mcL (130-400); RED CELL DISTRIBUTION WIDTH 13.6 % (11.5-14.5)
[2018-11-11 21:09] LABS: CALCIUM 8.4 mg/dL (8.5-10.1); CARBON DIOXIDE 28.4 mmol/L (21-32); CHLORIDE SERUM 104 mmol/L (98-107); CREATININE SERUM 0.7 mg/dL (0.6-1.0); GFR1 > 60 mL/min; GLUCOSE SERUM 156 mg/dL (74-106); POTASSIUM SERUM 4.3 mmol/L (3.5-5.1); SODIUM SERUM 142 mmol/L (136-145)
[2018-11-11 21:12] LABS: microscopic required? YES; urine erythrocyte TRACE (NEGATIVE)
[2018-11-11 21:13] LABS: ALKALINE PHOSPHATASE 123 U/L (46-116); ALT/SGPT 30 U/L (14-59); AST/SGOT 26 U/L (15-37); BILIRUBIN TOTAL 0.4 mg/dL (0.20-1.00); HDL CHOLESTEROL 40 mg/dL (40-60); LIPASE 301 IU/L (73-393); TOTAL PROTEIN, SERUM 7.7 g/dL (6.4-8.2); TRIGLYCERIDES 188 mg/dL (<150)
[2018-11-11 21:14] LABS: CHOLESTEROL 107 mg/dL (<200); CHOLESTEROL/HDL RATIO 2.7
[2018-11-11 21:26] LABS: T3 TOTAL 1.08 ng/mL
--- NOTE | 2018-11-11 21:32 | NUR ---
PT AWAKE AND ALERT, LAYING IN POSITION OF COMFORT. PT NO LONGER C/O PAIN, PT C/O "PRESSURE" IN HER CHEST. VSS, RESPS E/U, NAD NOTED AT THIS TIME. CALL LIGHT W/IN REACH. WILL CONTINUE TO MONITOR.
[2018-11-11 21:35] LABS: FREE T4 1.66 ng/dL (0.76-1.46); FREE THYROXINE INDEX 3.9 ug/dL (1.4-4.5); T4(THYROXINE) 10.5 ug/dL (4.7-13.3)
[2018-11-11] MEDS ORDERED: COLACE100 MG PO (22:36)
[2018-11-11] MEDS ORDERED: LISINOPRIL10 MG PO (22:37)
[2018-11-11] MEDS ORDERED: SIMVASTATIN10 M1 PO (22:37)
--- NOTE | 2018-11-11 22:50 | NUR ---
REPORT GIVEN TO USMAN COMBS
[2018-11-11 23:17] VITALS: BP 102/44
--- NOTE | 2018-11-11 23:29 | NUR ---
RECEIVED PT FROM ER, PT ADMIT FOR NON STEMI, PT IS A/O X4, VERBAL RESPONSIVE, ABLE TO TELL WHAT SHE NEEDS. LUNG SOUND CLEAR BILATERAL,NO COUGH, NO SOB, PT IS ON TELE 1, SB, C/O CHEST PAIN R/T LEFT ARM, BOWEL SOUND PRESENT ALL 4 QUADRANTS, NO DISTENTION, NO TENDER. PEDAL PULSE PRESENT BOTH FEET, NO EDEMA, IV AT RIGHT AC, NO LEAKING, NO INFILTRAITON. ALL ADLS ASSIST, ALL NEED MET, CALL LIGHT IN REACH, WILL CONTINUE TO MONTIOR.
--- NOTE | 2018-11-12 00:02 | NUR ---
PATIENT RESTING THIS TIME WITH NO SIGN OF DISTRESS. TELE#1 SB 58 ON MONITOR, DENIES CHEST DISCOMFORT AT THIS TIME. ADMISSION ORDERS CARRIED OUT. IV HEPLOCK TO RAC. WILL CONTINUE TO MONITOR. CALL LIGHT WITHIN REACH.
[2018-11-12] MEDS ORDERED: TOPROL XL25 MG PO (02:30)
[2018-11-12] MEDS ORDERED: DILTIAZEM HCL120 M2 PO (02:30)
--- NOTE | 2018-11-12 05:05 | NUR ---
SLEEPING SINCE PATIENT CAME FROM ER, DENIED CHEST DISCOMFORT AT THIS TIME. ALL NEEDS ATTENDED.
[2018-11-12 05:21] VITALS: BP 104/45
[2018-11-12 06:47] LABS: BASOPHIL % 0.8 % (0-2); PLATELET COUNT 207 x10^3mcL (130-400); RED CELL DISTRIBUTION WIDTH 13.9 % (11.5-14.5)
[2018-11-12 07:08] LABS: CALCIUM 8.4 mg/dL (8.5-10.1); CARBON DIOXIDE 28.4 mmol/L (21-32); CHLORIDE SERUM 107 mmol/L (98-107); CREATININE SERUM 0.8 mg/dL (0.6-1.0); GFR1 > 60 mL/min; GLUCOSE SERUM 113 mg/dL (74-106); POTASSIUM SERUM 4.7 mmol/L (3.5-5.1); SODIUM SERUM 144 mmol/L (136-145)
--- NOTE | 2018-11-12 08:20 | NUR ---
RECEIVED PATIENT RESTING IN BED, NO ACUTE DISTRESS NOTED. PATIENT DENIES CHEST PAIN BUT STATES SHES FELT PRESURE THROUGH THE NIGHT. TELE MONITOR IN PLACE. PATIENT IS A/OX4, DENIES MCKEON. NO RESPIRATORY DISTRESS NOTED, ON ROOM AIR. PATIENT DENIES LOOSE STOOLS. IV TO RAC SALINE LOCK, CDI & PATENT, NO S/S OF INFILTRATIONS. CALL LIGHT WITHIN REACH, BED IN LOW POSITION, WILL CONTINUE TO MONITOR.
--- NOTE | 2018-11-12 09:30 | NUR ---
DR LARA AWARE PATIENT WAS C/O CONTINOUS CHEST PRESSURE. DR LARA AWARE TROP DECREASED TO 0.886. DR. LARA & DR. MAYORGA AT BEDSIDE, SPOKE WITH PATIENT REGARDING CHEST PAIN & PLAN OF CARE. WILL CONTINUE TO MONITOR PATIENT.
--- NOTE | 2018-11-12 09:50 | NUR ---
PATIENT C/O CHEST PAIN 10/17, MEDICATED PATIENT WITH MORPHINE PER PROTOCOL (SEE EMAR). PATIENT B/P: 119/54 HR: 55. PATIENT TOLERATED MORPHINE, WILL CONTINUE TO MONITOR & MANAGED PAIN. CALL LIGHT WITHIN REACH, BED IN LOW POSITION, WILL CONTINUE TO MONITOR.
[2018-11-12 09:59] VITALS: BP 119/54
[2018-11-12 13:40] VITALS: BP 118/39
--- NOTE | 2018-11-12 14:34 | NUR ---
DR LARA AWARE PATIENTS TROP DECREASED TO 0.695. NO FURTHER ORDER AT THIS TIME. WILL CONTINUE TO MONITOR.
--- NOTE | 2018-11-12 14:38 | NUR ---
[facility] pharmacy card and list to low cost medical clinics given to patient by Rashida Carver.
--- NOTE | 2018-11-12 15:20 | NUR ---
PATIENT TRANSFERED TO MED SURG, TELE MONITOR RETURNED TO PASTEURIZING MACHINE OPERATOR.
--- NOTE | 2018-11-12 18:00 | NUR ---
PATIENT RESTING IN BED, WATCHING TV. NO ACUTE DISTRESS NOTED. PATIENT DENIES PAIN. NO RESP DISTRESS NOTED, PATIENT ON ROOM AIR, IV TO RAC SALINE LOCK, CDI&PATENT, NO S/S OF INFILTRATION. CALL LIGHT WITHIN REACH, BED IN LOW POSITION, WILL ENDORSE REPORT TO NIGHT NURSE.
[2018-11-12 18:04] VITALS: BP 140/69
[2018-11-12 18:07] VITALS: BP 105/48
--- NOTE | 2018-11-12 19:50 | NUR ---
Awake and verbally responsive. No respiratory distress noted on room air. Denies chest pain. Denies n/v. SCD in place. Will cont.to monitor. Call light within reach.
[2018-11-12 20:40] VITALS: BP 104/47
--- NOTE | 2018-11-13 04:21 | NUR ---
Resting in bed. Afebrile. No significant change in condition noted. Denies chest pain. In no apparent distress.
[2018-11-13 05:48] VITALS: BP 126/50
[2018-11-13 06:46] LABS: BASOPHIL % 0.6 % (0-2); PLATELET COUNT 201 x10^3mcL (130-400); RED CELL DISTRIBUTION WIDTH 13.9 % (11.5-14.5)
[2018-11-13 07:07] LABS: CALCIUM 8.4 mg/dL (8.5-10.1); CARBON DIOXIDE 27.7 mmol/L (21-32); CHLORIDE SERUM 106 mmol/L (98-107); CREATININE SERUM 0.7 mg/dL (0.6-1.0); GFR1 > 60 mL/min; GLUCOSE SERUM 122 mg/dL (74-106); MAGNESIUM 1.9 mg/dL (1.8-2.4); PHOSPHOROUS 4.6 mg/dL (2.5-4.9); POTASSIUM SERUM 3.9 mmol/L (3.5-5.1); SODIUM SERUM 142 mmol/L (136-145)
--- NOTE | 2018-11-13 07:35 | NUR ---
RECEIVED PT FROM [facility]. PT AWAKE, ALERT A/OX4. PT ON ROOM AIR WITH NO RESP DISTRESS NOTED. IV ACCESS RAC CDI, SALINE LOCKED. PT COMPLAINING OF PAIN TO RUQ 6/10, WILL MEDICATE. PERIPHERAL PULSES PALPABLE, NO EDEMA NOTED. PT ABLE TO AMBULATE WITH NO WEAKNESS NOTED. PT DENIES ANY ISSUES WITH ELIMINATION AT THIS TIME. SAFETY MEASURES IN PLACE, BED LOW AND LOCKED. CALL LIGHT WITHIN REACH.
--- NOTE | 2018-11-13 08:35 | NUR ---
PT REPORTS PAIN 5-6/10 IN RUQ. NORCO ADMINISTERED ORDERED PRN. (SEE EMAR). PT REPORTS HAVING SOME DIARRHEA. WILL MONITOR.
[2018-11-13 08:49] VITALS: BP 118/50
--- NOTE | 2018-11-13 09:19 | NUR ---
PT ASLEEP AT THIS TIME WITH NO DISCOMFORT NOTED. WILL CONTINUE TO MONITOR.
[2018-11-13 11:27] VITALS: BP 118/50
--- NOTE | 2018-11-13 11:35 | NUR ---
DISCHARGE INSTRUCTIONS/EDUCATION PROVIDED TO PATIENT AND FAMILY. PT TO FOLLOW UP WITH APPT GIVEN. PT/FAMILY VERBALIZED UNDERSTANDING. IV ACCESS REMOVED WITH CATHETER INTACT. NO REDNESS OR SWELLING NOTED. PT DENIES PAIN AT THIS TIME. PT TAKEN BY WHEELCHAIR TO PRIVATE AUTO FOR DISCHARGE.
== END 2018-11-13 12:16 | disposition home or self-care (01) | DRG 198 ==
LOC: ED 19:54 → MU 21:58 → DU 21:58 → MU 11-12 16:05
PROVIDERS: Specialist; ADMIT Internal Medicine
DX: I25.111 Atherosclerotic heart disease of native coronary artery with angina pectoris with documented spasm (principal); I11.9 Hypertensive heart disease without heart failure; E11.65 Type 2 diabetes mellitus with hyperglycemia; R55 Syncope and collapse; R91.1 Solitary pulmonary nodule; E89.0 Postprocedural hypothyroidism; E78.5 Hyperlipidemia, unspecified; F15.10 Other stimulant abuse, uncomplicated; Z85.850 Personal history of malignant neoplasm of thyroid; Z90.710 Acquired absence of both cervix and uterus; Z79.84 Long term (current) use of oral hypoglycemic drugs; Z79.82 Long term (current) use of aspirin
CPT/HCPCS: 82962; 83880; 84439; G0378; J1650; J1885; J2270; J2405; J3010; J7030; Q0092

== ENCOUNTER 2018-12-19 17:52 | Emergency (ER) | payer MEDICAID ==
[~2018-12-19] VITALS: Ht 167.6 cm; Wt 81.2 kg
[~2018-12-19 17:52] MED LIST changes: +DILTIAZEM HCL120 M2 PO; +LISINOPRIL10 MG PO; +SIMVASTATIN10 M1 PO; +TOPROL XL25 MG PO
[2018-12-19 18:02] VITALS: Ht 167.6 cm; Wt 81.2 kg
[2018-12-19 19:32] LABS: BASOPHIL % 0.6 % (0-2); PLATELET COUNT 237 x10^3mcL (130-400); RED CELL DISTRIBUTION WIDTH 14.7 % (11.5-14.5)
[2018-12-19 19:35] LABS: CALCIUM 8.2 mg/dL (8.5-10.1); CARBON DIOXIDE 26.8 mmol/L (21-32); CHLORIDE SERUM 97 mmol/L (98-107); CREATININE SERUM 0.6 mg/dL (0.6-1.0); GFR1 > 60 mL/min; GLUCOSE SERUM 381 mg/dL (74-106); SODIUM SERUM 134 mmol/L (136-145)
[2018-12-19 19:40] LABS: ALBUMIN 3.7 g/dL (3.4-5.0); ALKALINE PHOSPHATASE 153 U/L (46-116); BILIRUBIN TOTAL 0.23 mg/dL (0.20-1.00); TOTAL PROTEIN, SERUM 7.6 g/dL (6.4-8.2)
[2018-12-19 20:45] LABS: ALT/SGPT 43 U/L (14-59); AST/SGOT 33 U/L (15-37)
[2018-12-20] MEDS ORDERED: ATORVASTATIN CA40 M1 PO (00:12)
[2018-12-20] MEDS ORDERED: PRINIVIL10 MG PO (00:12)
[2018-12-20 00:46] VITALS: BP 122/51
== END 2018-12-20 01:04 | disposition home or self-care (01) ==
LOC: ED 17:52
PROVIDERS: Emergency Medicine
DX: E11.65 Type 2 diabetes mellitus with hyperglycemia (principal); I10 Essential (primary) hypertension; E78.00 Pure hypercholesterolemia, unspecified; Z90.89 Acquired absence of other organs
CPT/HCPCS: 82962; J7030

== ENCOUNTER 2018-12-22 06:17 | Inpatient (IN) | payer MEDICAID ==
[~2018-12-22] VITALS: Ht 167.6 cm; Wt 78.2 kg
[~2018-12-22 06:17] MED LIST changes: +ATORVASTATIN CA40 M1 PO
[2018-12-22 06:25] VITALS: Ht 167.6 cm; Wt 78.2 kg
--- NOTE | 2018-12-22 07:01 | NUR ---
PT PRESENTS TO ED WITH FOR C/O CHEST PAIN X 1 WEEK THAT IS NON RADIATING THAT SHE DESCRIBES PRESSURE ALONG WITH ASSOCIATED "SOB". PT HAS CARDIAC CATH FOR CARDIAC STUDY HOWEVER PER PT EVERYTHING CAME BACK NORMAL EXCEPT HOWEVER HER HR IS SLIGHTLY SLOW AND THEY TOLD HER TO FOLLOW UP WITH MOTORIZED [employer]IE[employer]NT. 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 LUNG SOUNDS ARE CLEAR BILATERALLY. PT RESP ARE E/U. SKIN WNL. AT BEDSIDE. PT AXO X4. PT SPEAKING IN CLEAR AND FULL SENTENCES. PT CONNECTED TO FULL CM AND PULSE OX MONITORS. NAD AT THIS TIME
--- NOTE | 2018-12-22 07:11 | NUR ---
REPORT GIVEN TO LES JAMESON RN TO CONTINUE CARE OF PT. ALL QUESTIONS AND CONCERNS ADRESSED AT THIS TIME
--- NOTE | 2018-12-22 07:15 | NUR ---
I RESUMED CARE OF PT AT THIS TIME. PT IN NO DISTRESS ON FULL CM AT BEDSIDE WILL MONITOR
--- NOTE | 2018-12-22 07:19 | NUR ---
PT MEDICATED PER MD ORDERS SEE EMAR. PT INST TO PROVIDE URINE SAMPLE SOON POSSIBLE.
[2018-12-22 07:45] LABS: BASOPHIL % 0.4 % (0-2); PLATELET COUNT 234 x10^3mcL (130-400); RED CELL DISTRIBUTION WIDTH 14.3 % (11.5-14.5)
[2018-12-22 07:51] LABS: CARBON DIOXIDE 32.7 mmol/L (21-32); CHLORIDE SERUM 100 mmol/L (98-107); CREATININE SERUM 0.6 mg/dL (0.6-1.0); GFR1 > 60 mL/min; GLUCOSE SERUM 245 mg/dL (74-106); POTASSIUM SERUM 4.1 mmol/L (3.5-5.1); SODIUM SERUM 139 mmol/L (136-145)
[2018-12-22 07:57] LABS: ALBUMIN 3.7 g/dL (3.4-5.0); ALKALINE PHOSPHATASE 145 U/L (46-116); ALT/SGPT 44 U/L (14-59); AST/SGOT 30 U/L (15-37); BILIRUBIN TOTAL 0.28 mg/dL (0.20-1.00); HDL CHOLESTEROL 38 mg/dL (40-60); LIPASE 200 IU/L (73-393); TOTAL PROTEIN, SERUM 7.4 g/dL (6.4-8.2)
[2018-12-22 07:58] LABS: CHOLESTEROL 131 mg/dL (<200); CHOLESTEROL/HDL RATIO 3.4; TRIGLYCERIDES 296 mg/dL (<150)
[2018-12-22 08:03] LABS: FREE T4 1.2 ng/dL (0.76-1.46); FREE THYROXINE INDEX 3.6 ug/dL (1.4-4.5); T4(THYROXINE) 9.7 ug/dL (4.7-13.3)
--- NOTE | 2018-12-22 08:20 | NUR ---
PT C/O CP PT MEDICATED PER MD ORDERS SEE EMAR
--- NOTE | 2018-12-22 09:35 | NUR ---
PT RESTING COMFORTABLY NO DISTRESS PAIN 10 NOW AT BEDSIDE PT ON FULL CM VSS NO FURTHER ORDERS AT THIS TIME. WILL MONITOR
[2018-12-22] MEDS ORDERED: FLUCONAZOLE200 M2 PO (10:02)
[2018-12-22] MEDS ORDERED: LEVEMIR100 U/M1 (10:02)
[2018-12-22] MEDS ORDERED: NEU300 PO (10:03)
[2018-12-22] MEDS ORDERED: SYNTHROID0.2 MG PO (10:03)
[2018-12-22] MEDS ORDERED: DILTIAZEM HCL120 M2 PO (10:04)
[2018-12-22] MEDS ORDERED: LISINOPRIL10 MG PO (10:04)
[2018-12-22] MEDS ORDERED: FERROUS SULFAT325 M2 PO (10:04)
[2018-12-22] MEDS ORDERED: ASPIRIN FOR CHI81 M1 PO (10:05)
[2018-12-22] MEDS ORDERED: ATORVASTATIN CA40 M1 PO (10:05)
--- NOTE | 2018-12-22 10:05 | NUR ---
REPORT GIVEN TO MAHESH COMBS RESUMING CARE OF PT IN TELE FLOOR
[2018-12-22 10:08] LABS: T3 TOTAL 1.36 ng/mL
--- NOTE | 2018-12-22 10:33 | NUR ---
PT TRANSPORTED TO TELE FLOOR VIA GURNEY ON FULL CM NO DISTRESS VSS CARE OF PT RESUMED BY MAHESH COMBS
--- NOTE | 2018-12-22 11:00 | NUR ---
RECEIVED PT FROM ED VIA [facility] AT 1030. AA/OX4. SPEAKS CROATIAN. C/O MIDSTERNAL CP, CONTINUOUS, WORSE WITH ACTIVITY/PALPATION/STRESS. X1.5 WEEKS. NONRADIATING, REPRODUCIBLE, DESCRIBES PRESSURE. RATES 5/10. NITROL PATCH TO CENTER CHEST FROM ED IN PLACE. VS STABLE. REPORTS MILD INTERMITTENT SOB WITH EXERTION. REPORTS MILD GENERALIZED MCKEON. INTERMITTENT. IV WNL TO RAC, 20 GAUGE. PATENT AND FLUSHES WELL. IVF FLOWING. NO ABD. PAIN. NO N/V. NO CHILLS. NO FEVER. AMBULATORY WITH FULL ROM, GAIT STEADY. SKIN WARM, DRY, INTACT. VOIDS FREELY, UA/UDS SAMPLE COLLECTED, SENT TO LAB. PT ORIENTED TO SURROUNDINGS. BED IN LOW POSITION. CALL LIGHT WITHIN REACH. INSTRUCTED TO USE CALL LIGHT TO CALL FOR ASSISTANCE PRN. VERBALIZED UNDERSTANDING. WILL CONT. TO MONITOR.
[2018-12-22 11:06] VITALS: BP 122/43
[2018-12-22 11:32] LABS: microscopic required? NO
[2018-12-22 11:52] LABS: UA SPECIFIC GRAVITY 1.015 (1.005-1.035); urine erythrocyte NEGATIVE (NEGATIVE)
[2018-12-22 12:00] LABS: AMPHETAMINE QUAL UR NONE DETECTED (See below)
--- NOTE | 2018-12-22 12:51 | NUR ---
PT C/O CONTINOUS CP, NONRADIATING, MIDSTERNAL, "PRESSURE", RATES /10. GIVEN IV PAIN MED SEE MAR. AA/OX4. GIVEN TYLENOL FOR MCKEON. SEE MAR. NO S/S OF ACUTE DISTRESS. NO SOB ON ROOM AIR. RR EVEN/UNLABORED. VS STABLE. EATING LUNCH. CALM/COOPERATIVE. IV WNL TO RAC, IV FLUIDS FLOWING. BED IN LOW POSITION. CALL LIGHT WITHIN REACH. WILL CONT. TO MONITOR.
--- NOTE | 2018-12-22 15:15 | NUR ---
TROPONIN 0.110. TRENDING DOWN. CONSULT WITH DR. DOMINGUEZ PENDING. DIRECTOR LIFE SCIENCES YOAN AWARE OF PREVIOU TROP. WILL CONT TO MONITOR.
[2018-12-22 16:57] VITALS: BP 108/54
--- NOTE | 2018-12-22 18:16 | NUR ---
FOUND PT EATING HOME FOOD WITH . DIABETIC EDUCATION PROVIDED TO PT. PT AND VERBALIZED UNDERSTANDING. PT AA/OX4 LAYING IN BED. NO S/S OF ACUTE DISTRESS. NO C/O PAIN AT THIS TIME. NO SOB ON ROOM AIR. IV WNL TO RAC, PATENT AND FLUSHES WELL. SALINE LOCKED. CALM/COOPERATIVE. BED IN LOW POSITION. CALL LIGHT WITHIN REACH. WILL ENDORSE TO ONCOMING SHIFT.
[2018-12-22 20:22] VITALS: BP 114/54
--- NOTE | 2018-12-22 23:07 | NUR ---
PT'S IN BED NO ACUTE DISTRESS NOTED ,PT C/O MILD CHEST PAIN 3/10 ON AND OFF , TELE NSR HR 65, WILL MONITOR PT CLOSELY . HL INTACT FLUSHING WELL .
--- NOTE | 2018-12-23 05:10 | NUR ---
I HAVE REVIEWED THE DATA COLLECTION BY [facility] DIRECTOR COMBAT OPERATIONS OFFICER (NAME):HOMERO ETIENNE ENTERED ON (DATE/TIME): I CONCUR WITH THE DATA AND ANY EXCEPTIONS OR COMMENTS ARE LISTED BELOW:
[2018-12-23 05:30] VITALS: BP 112/45
[2018-12-23 06:18] LABS: BASOPHIL % 0.5 % (0-2); PLATELET COUNT 224 x10^3mcL (130-400)
--- NOTE | 2018-12-23 06:23 | NUR ---
NO CHANGES OF CONDITION NOTED, ALL DUE MEDS GIVEN NO REACTION NOTED, HL INTACT FLUSHING WELL , TELE NSR .
[2018-12-23 06:28] LABS: CARBON DIOXIDE 31.5 mmol/L (21-32); CHLORIDE SERUM 102 mmol/L (98-107); CREATININE SERUM 0.6 mg/dL (0.6-1.0); GFR1 > 60 mL/min; GLUCOSE SERUM 231 mg/dL (74-106); POTASSIUM SERUM 4.2 mmol/L (3.5-5.1); SODIUM SERUM 140 mmol/L (136-145)
[2018-12-23 06:55] LABS: RED CELL DISTRIBUTION WIDTH 14.7 % (11.5-14.5)
--- NOTE | 2018-12-23 07:30 | NUR ---
A&OX4, COOPERATES WELL, FOLLOWS COMMANDS. TELE #8, SINUS BRADYCARDIA. PERIPHERAL PULSES ARE PALPABLE WITH NO SIGNS OF EDEMA. LUNG SOUNDS ARE CTA BILATERALLY, ON RA, O2 SAT 98%. NORMOACTIVE BOWEL SOUNDSX4, ABLE TO VOID WELL, NO GENERALIZED WEAKNESS. SKIN IS CDI. CHEST PAIN BUT STATES NOT ENOUGH TO RECEIVE PAIN MEDICATION. IV SITE IS CDI. WILL CONTINUE TO MONITOR HEART RHYTHM AND CHEST PAIN, WELL ANSWER ANY QUESTIONS OR CONCERNS THE PATIENT HAS.
[2018-12-23 09:34] VITALS: BP 121/56
--- NOTE | 2018-12-23 11:31 | NUR ---
Discount pharmacy card and list to low cost medical clinics given to patient by Rashida Carver.
[2018-12-23 12:55] VITALS: BP 115/39
[2018-12-23 13:00] VITALS: BP 127/59
--- NOTE | 2018-12-23 15:30 | NUR ---
PATIENT'S SON CALLED AND ASKED FOR UPDATE ON HER MOTHER, THE PATIENT. THE SON, MELVIN, IS NOT ON THE FACT SHEET. INQUIRED PATIENT IF IT WAS OKAY WITH HER FOR ME TO SPEAK WITH HIM. PATIENT AGREED. I UPDATED SON AND PASSED THE PHONE TO MOTHER. MOTHER SPOKE WITH SON. ALL QUESTIONS AND CONCERNS HAVE BEEN ADDRESED.
[2018-12-23 17:31] VITALS: BP 108/45
--- NOTE | 2018-12-23 18:42 | NUR ---
PATIENT IS A&OX4, COOPERATES WELL AND FOLLOWS COMMANDS. THE PATIENT SHOWS NO SIGNS OF APPARENT CHEST DISCOMFORT OR PAIN, OR IS IN ANY DISTRESS. THE PATIENT IS CURRENTLY RESTING IN BED AND WATCHING TELEVISION. WILL CONTINUE TO ADDRESS ANY QUESTIONS AND CONCERNS NEEDED.
--- NOTE | 2018-12-23 18:48 | NUR ---
NURSING CO-SIGN THE DOCUMENTATION ENTERED BY THE IP HAS BEEN REVIEWED. REVIEWED/CO-SIGNED BY: Natacha Kearney RN DOCUMENTATION DONE BY: MARY KIM RN
[2018-12-23 20:45] VITALS: BP 108/48
--- NOTE | 2018-12-23 21:41 | NUR ---
PT RECIEVED AAO REG RESP NO SOB V/S STABLE,KEPT CLEAN AN DRY TO TOUCH,HL TO THE RT ARM WITH THE SITE PATENT AND INTACT,PT ON TELE MONITOR AND IN NSR NO ECTOPY OR CHEST PAIN AT THIS TIME,
--- NOTE | 2018-12-24 02:00 | NUR ---
PT SLEEPING AT THIS TIME,WILL CONTINUE TO MONITOR.
[2018-12-24 05:03] VITALS: BP 109/58
--- NOTE | 2018-12-24 06:26 | NUR ---
PT HAD A RESTING NIGHT NO CHANGE AT THIS TIME AND WILL CONTINUE TO MONITOR.
--- NOTE | 2018-12-24 07:00 | NUR ---
RECIEVED PT RESTING IN BED WITH NO C/ODISTRESS NOTED. A/O X4 WITH NO MCKEON OR DIZZINESS. TELE # 8 CONNECTED TO PT, DENIES CP OR PRESSURE. SALINE LOCK TO RIGHT HAND INTACT AND PATENT WITH NO REDNESS OR INFLAMMATION NOTED. SAFETY PRECAUTIONS IN PLACE, CALL LIGHT WITHIN REACH, WILL MONITOR.
[2018-12-24 08:00] VITALS: BP 112/65
--- NOTE | 2018-12-24 08:16 | NUR ---
TORADOL GIVEN PER EMAR FOR C/O 5/10 CP, WILL REASSESS. AWARE.
[2018-12-24 12:36] VITALS: BP 108/41
--- NOTE | 2018-12-24 13:15 | NUR ---
PT STABLE AND REPORTS NO CP OR PRESSURE AT THIS TIME, WILL MONITOR.
[2018-12-24 13:29] VITALS: BP 108/41
--- NOTE | 2018-12-24 14:15 | NUR ---
PT STABLE TO DISCHARGE PER MD ORDER. VS WNL AND NO DISTRESS OR CP NOTED. ALL DISCHARGE INSTRUCTIONS, EDUCATION, AND PRESCRIPTIONS GIVEN TO PT, SHE VERBALIZES UNDERSTANDING. ALL CARES TOLERATED WELL. IV REMOVED WITH CATHETER INTACT, NO REDNESS OR INFLAMMATION NOTED. ID BAND REMOVED FROM PT. PT ESCORTED DOWN TO LOBBY VIA WC BY ANTHROPOLOGY FACULTY MEMBER AND AT SIDE. ALL PERSONAL BELONGINGS IN HAND.
== END 2018-12-24 14:18 | disposition home or self-care (01) | DRG 198 ==
LOC: ED 06:17 → DU 08:42
PROVIDERS: Specialist; ADMIT Internal Medicine
DX: I20.1 Angina pectoris with documented spasm (principal); I11.9 Hypertensive heart disease without heart failure; E11.9 Type 2 diabetes mellitus without complications; E89.0 Postprocedural hypothyroidism; Z85.850 Personal history of malignant neoplasm of thyroid; Z86.73 Personal history of transient ischemic attack (TIA), and cerebral infarction without residual deficits; Z79.82 Long term (current) use of aspirin; Z79.84 Long term (current) use of oral hypoglycemic drugs
CPT/HCPCS: 82962; 83880; 84439; 90658; G0378; J1815; J1885; J2270; J7030; Q0092

== ENCOUNTER 2019-02-27 08:43 | Emergency (ER) | payer MEDICAID ==
[~2019-02-27] VITALS: Ht 167.6 cm; Wt 80.3 kg
[~2019-02-27 08:43] MED LIST changes: +ASPIRIN FOR CHI81 M1 PO; +FLUCONAZOLE200 M2 PO; +NEU300 PO; +SYNTHROID0.2 MG PO
[2019-02-27 08:50] VITALS: Ht 167.6 cm; Wt 80.3 kg
[2019-02-27 09:56] LABS: ALBUMIN 3.7 g/dL (3.4-5.0); ALKALINE PHOSPHATASE 122 U/L (46-116); ALT/SGPT 60 U/L (14-59); AST/SGOT 19 U/L (15-37); BILIRUBIN TOTAL 0.32 mg/dL (0.20-1.00); CALCIUM 8.8 mg/dL (8.5-10.1); CARBON DIOXIDE 31.7 mmol/L (21-32); CHLORIDE SERUM 101 mmol/L (98-107); CREATININE SERUM 0.6 mg/dL (0.6-1.0); GFR1 > 60 mL/min; GLUCOSE SERUM 238 mg/dL (74-106); HDL CHOLESTEROL 45 mg/dL (40-60); LIPASE 223 IU/L (73-393); POTASSIUM SERUM 3.9 mmol/L (3.5-5.1); SODIUM SERUM 138 mmol/L (136-145); TOTAL PROTEIN, SERUM 7.4 g/dL (6.4-8.2); TRIGLYCERIDES 130 mg/dL (<150)
[2019-02-27 10:04] LABS: T3 TOTAL 1.27 ng/mL
[2019-02-27 10:14] LABS: CHOLESTEROL 121 mg/dL (<200); CHOLESTEROL/HDL RATIO 2.7
[2019-02-27 10:15] LABS: BASOPHIL % 0.5 % (0-2); PLATELET COUNT 233 x10^3mcL (130-400); RED CELL DISTRIBUTION WIDTH 13.8 % (11.5-14.5)
[2019-02-27 10:39] VITALS: BP 112/47
[2019-02-27 11:05] LABS: FREE T4 1.95 ng/dL (0.76-1.46)
[2019-02-27 11:17] LABS: FREE THYROXINE INDEX 5.2 ug/dL (1.4-4.5); T4(THYROXINE) 13.4 ug/dL (4.7-13.3)
== END 2019-02-27 10:39 | disposition home or self-care (01) ==
LOC: ED 08:43
PROVIDERS: Specialist
DX: L03.211 Cellulitis of face (principal); H00.012 Hordeolum externum right lower eyelid; H01.002 Unspecified blepharitis right lower eyelid; R07.89 Other chest pain
CPT/HCPCS: 36415; 84439; Q0092

== ENCOUNTER 2019-08-05 18:57 | Emergency (ER) | payer MEDICAID ==
[~2019-08-05] VITALS: Ht 167.6 cm; Wt 82.6 kg
[2019-08-05 19:02] VITALS: Ht 167.6 cm; Wt 82.6 kg
[2019-08-05 20:20] LABS: CALCIUM 8.7 mg/dL (8.5-10.1); CARBON DIOXIDE 29.2 mmol/L (21-32); CHLORIDE SERUM 94 mmol/L (98-107); CREATININE SERUM 0.8 mg/dL (0.6-1.0); GFR1 > 60 mL/min; GLUCOSE SERUM 425 mg/dL (74-106); POTASSIUM SERUM 3.7 mmol/L (3.5-5.1); SODIUM SERUM 131 mmol/L (136-145)
[2019-08-05 22:02] VITALS: BP 123/54
== END 2019-08-05 22:02 | disposition home or self-care (01) ==
LOC: ED 18:57
PROVIDERS: Emergency Medicine
DX: E11.65 Type 2 diabetes mellitus with hyperglycemia (principal); R51 Headache; I10 Essential (primary) hypertension; Z86.73 Personal history of transient ischemic attack (TIA), and cerebral infarction without residual deficits; E78.00 Pure hypercholesterolemia, unspecified; Z90.89 Acquired absence of other organs
CPT/HCPCS: 82962; J0780; J1815; J1885; J7030